=== PATIENT | female | born 1995 | race Asian ===

== ENCOUNTER 2021-08-25 13:04 | Emergency (ER) | payer MEDICAID, OTHER ==
[~2021-08-25] VITALS: Ht 167.6 cm; Wt 86.2 kg
[2021-08-25 16:40] VITALS: BP 128/81
[2021-08-25] MEDS ORDERED: AMOX-277 PO (17:35)
[2021-08-25] MEDS ORDERED: ACET-1158 PO (17:35)
[2021-08-25] MEDS ORDERED: cefTRIAXone SOD 1,000 MG VL IM ONE (17:45)
[2021-08-25] MEDS ORDERED: ACETAMINOPHEN 325 MG TAB PO ONE (17:45)
[2021-08-25] MEDS ORDERED: AMOXICILLIN/CLAVUL 875 MG TAB PO ONE (17:45)
== END 2021-08-25 18:02 | disposition home or self-care (01) ==
LOC: ER 13:04
DX: S61.452A Open bite of left hand, initial encounter (principal); S51.852A Open bite of left forearm, initial encounter; Z79.2 Long term (current) use of antibiotics; Z79.899 Other long term (current) drug therapy; W54.0XXA Bitten by dog, initial encounter; Y93.89 Activity, other specified; Y92.89 Other specified places as the place of occurrence of the external cause; Y99.8 Other external cause status
CPT/HCPCS: 73090; 73130; 96372; 99284; J0696